=== PATIENT | male | born 1930 | race African-American/Black ===

== ENCOUNTER 2020-05-28 00:02 | Inpatient (IN) | payer MEDICARE, BC ==
--- NOTE | 2020-05-28 01:12 | ER Document Report ---
ED Fall - General Chief Complaint: Fall Stated Complaint: FALL Time Seen by Provider: 05/28/20 00:39 Primary Care Provider: ROB HOLLOWAY DPM [Primary Care Provider] - Follow up as needed TRAVEL OUTSIDE OF THE [place] IN LAST 30 DAYS: No - HPI Notes: Patient is an 89-year-old male who presents after a fall. Patient states that he was getting up from his recliner to get to his wheelchair and slowly slid down to the ground. He states that his legs give out sometimes and this is not new. He did not hit his head or pass out. Patient denies any injuries. No hip pain, no back pain, no neck pain, no chest pain. Patient is not on any blood thinners. He denies any recent illnesses. No fevers. No cough or cold symptoms. He is chronically on 2 L of oxygen for CHF. Patient lives with his family. He states he has had some dysuria. - Related data Allergies/Adverse Reactions: No Known Allergies Allergy (Verified 11/12/14 16:07) Past Medical History - General Information source: Patient - Social History Smoking Status: Former Smoker Frequency of alcohol use: None Drug Abuse: None Family History: Reviewed & Not Pertinent - Past Medical History Cardiac Medical History: Reports: Hx Hypertension, Hx Peripheral Vascular Disease Denies: Hx Coronary Artery Disease, Hx Heart Attack Pulmonary Medical History: Reports: Hx COPD Denies: Hx Asthma, Hx Bronchitis, Hx Pneumonia Neurological Medical History: Denies: Hx Cerebrovascular Accident, Hx Seizures Endocrine Medical History: Reports: Hx Diabetes Mellitus Type 2 Musculoskeletal Medical History: Reports Hx Arthritis - Immunizations Immunizations up to date: Yes Hx Diphtheria, Pertussis, Tetanus Vaccination: Yes Hx Pneumococcal Vaccination: 07/12/13 Review of Systems - Review of Systems Notes: CONSTITUTIONAL: No fever, fatigue or weight loss. SKIN: No rash. HENT: No congestion, ear pain, or sore throat. CARDIOVASCULAR: No chest pain or edema. RESPIRATORY: No cough, congestion, or wheezing. Positive for exertional dyspnea. GASTROINTESTINAL: No abdominal pain, nausea, vomiting, or diarrhea. GENITOURINARY: Occasional dysuria. MUSCULOSKELETAL: No joint pain or swelling. LYMPHATIC: No swollen glands. NEUROLOGIC: No seizures. No headache, focal weakness or sensory changes. HEMATOLOGIC: No unusual bruising or bleeding. PSYCHIATRIC: No depression or anxiety. Physical Exam - Vital signs Vitals: Temp Resp BP Pulse Ox 98.7 F 20 138/64 H 99 05/28/20 00:08 05/28/20 00:08 05/28/20 00:08 05/28/20 00:08 - General General appearance: Appears well Notes: VITAL SIGNS: Within normal limits. GENERAL: No acute distress, non-toxic appearance. HEAD: Normal with no signs of head trauma. EYES: EOMI, conjunctiva normal, no discharge. EARS: Hearing grossly intact. NOSE: Normal. NECK: Normal range of motion, no tenderness, supple, no lymphadenopathy, No adenopathy, no JVD. No posterior cervical tenderness. CHEST: Clear breath sounds bilaterally. No wheezes, rales, or rhonchi. CARDIAC: Regular rate and rhythm. S1 and S2, without murmurs, gallops, or rubs. VASCULAR: Mild lower extremity edema. ABDOMEN: Normal and soft with no tenderness, no masses or pulsatile masses. GENITOURINARY: Normal, No tenderness MUSCULOSKELETAL: Good range of motion of all major joints. Extremities without clubbing, cyanosis or edema. Moves all extremities. Nontender to palpation of major joints. No head trauma. No neck pain. NEUROLOGICAL: Alert and oriented x 3. No focal sensory or strength deficits. Speech normal. Follows commands appropriately. PSYCHIATRIC: Normal Affect, judgement and mood. SKIN: Mild pressure sore on buttocks with mild erythema. Course - Re-evaluation Re-evalutation: 05/28/20 02:04 Patient's granddaughter came and provided more information. She states that he has been progressively getting weaker the past several months. He is usually able to help them move him and participate but he is becoming weaker. He was at [facility] for rehab in July. They recommended that he remain there is a permanent resident but they were unable to afford it. They do have home health care that comes for 2 hours every day to help him bathe. The granddaughter is concerned that they are unable to take care of him at home due to the weakness and it is much worse than normal. He states that he had a lot o f trouble walking from the bedroom to the bathroom which is just several steps away from his room. Patient has an elevated BNP. He also has signs of congestion on his x-ray. Patient has a mild elevated white blood cell count. I will obtain a urinalysis. He was given IV Lasix. I discussed with the hospitalist for admission for exertional dyspnea and CHF exacerbation and he is in agreement. 05/28/20 02:05 05/28/20 06:12 - Vital Signs Vital signs: Temp Pulse Resp BP Pulse Ox 98.2 F 23 H 128/62 H 99 05/28/20 04:15 05/28/20 05:01 05/28/20 05:01 05/28/20 05:01 - Laboratory Result Diagrams: 05/28/20 01:28 05/28/20 01:28 Laboratory results interpreted by me: 05/28/20 05/28/20 05/28/20 01:28 01:28 01:28 WBC 13.4 H RBC 3.98 L Hgb 10.9 L Hct 33.8 L RDW 14.5 H Plt Count 111 L Seg Neuts % (Manual) 89 H Band Neutrophils % 2 L Lymphocytes % (Manual) 4 L Abs Neuts (Manual) 12.2 H Chloride 96 L Carbon Dioxide 36 H BUN 22 H NT-Pro-B Natriuret Pep 1070 H Urine Protein Urine Blood Ur Leukocyte Esterase 05/28/20 04:47 WBC RBC Hgb Hct RDW Plt Count Seg Neuts % (Manual) Band Neutrophils % Lymphocytes % (Manual) Abs Neuts (Manual) Chloride Carbon Dioxide BUN NT-Pro-B Natriuret Pep Urine Protein 30 H Urine Blood LARGE H Ur Leukocyte Esterase MODERATE H - Diagnostic Test Radiology reviewed: Image reviewed, Reports reviewed - EKG Interpretation by Me EKG shows normal: Sinus rhythm Rate: Normal Heart block present: 1st Degree Additional EKG results interpreted by me: 05/28/20 04:05 Sinus rhythm at a rate of 69. First-degree AV block. QTc 425. Artifact present. No obvious ST changes. Previous EKG appears similar. Discharge - Discharge Clinical Impression: Exertional dyspnea, Elevated brain natriuretic peptide (BNP) level CHF exacerbation Qualifiers: Heart failure type: unspecified Qualified Code(s): I50.9 - Heart failure, unspecified Urinary tract infection Qualifiers: Urinary tract infection type: site unspecified Hematuria presence: without hematuria Qualified Code(s): N39.0 - Urinary tract infection, site not specified Condition: Stable Disposition: ADMITTED INPATIENT [facility] Admitted: Telemetry Referrals: ROB HOLLOWAY DPM [Primary Care Provider] - Follow up as needed
[2020-05-28 01:50] LABS: HEMATOCRIT 33.8 % (37.9-51.0); HEMOGLOBIN 10.9 g/dL (13.5-17.0); MEAN CORPUSCULAR HEMOGLOBIN 27.4 pg (27.0-33.4); MEAN CORPUSCULAR HGB CONC 32.2 g/dL (32.0-36.0); MEAN CORPUSCULAR VOLUME 85 fl (80-97); PLATELET COUNT 111 10^3/uL (150-450); RED BLOOD COUNT 3.98 10^6/uL (4.35-5.55); RED CELL DISTRIBUTION WIDTH 14.5 % (11.5-14.0); WHITE BLOOD COUNT 13.4 10^3/uL (4.0-10.5)
[2020-05-28 02:18] LABS: ALBUMIN 3.5 g/dL (3.5-5.0); ALKALINE PHOSPHATASE 54 U/L (38-126); ANION GAP 7 (5-19); ASPARTATE AMINO TRANSFERASE 25 U/L (17-59); BILIRUBIN,DIRECT 0.2 mg/dL (0.0-0.4); BILIRUBIN,TOTAL 0.8 mg/dL (0.2-1.3); BLOOD UREA NITROGEN 22 mg/dL (7-20); CALCIUM 8.9 mg/dL (8.4-10.2); CARBON DIOXIDE 36 mmol/L (22-30); CHLORIDE 96 mmol/L (98-107); GLUCOSE 110 mg/dL (75-110); TOTAL PROTEIN 6.4 g/dL (6.3-8.2)
[2020-05-28 02:21] LABS: ABSOLUTE LYMPHOCYTES# (MANUAL) 0.5 10^3/uL (0.5-4.7); ABSOLUTE MONOCYTES # (MANUAL) 0.7 10^3/uL (0.1-1.4); BAND NEUTROPHILS % (MANUAL) 2 % (3-5); BASOPHILS % (MANUAL) 0 % (0-2); EOSINOPHILS % (MANUAL) 0 % (0-6); LYMPHOCYTES % (MANUAL) 4 % (13-45); MONOCYTES % (MANUAL) 5 % (3-13); SEGMENTED NEUTROPHILS % (MAN) 89 % (42-78); TOTAL CELLS COUNTED 100
[2020-05-28 02:22] LABS: ANISOCYTOSIS SLIGHT; OVALOCYTES SLIGHT; POIKILOCYTOSIS SLIGHT; POLYCHROMASIA SLIGHT; TOXIC GRANULATION SLIGHT; TOXIC VACUOLATION PRESENT
[2020-05-28 02:23] LABS: HYPOCHROMASIA SLIGHT; PLATELET COMMENT DECREASED
--- NOTE | 2020-05-28 03:05 | RADIOLOGY REPORT (SQ) ---
EXAM DESCRIPTION: Site: CHEST SINGLE VIEW RP: XR CHEST 1 VIEW CLINICAL HISTORY: 89 years Male; fall; COMPARISON: 07/18/2015 FINDINGS: Lungs: No definite acute infiltrate. No pneumothorax or pleural effusion. Mediastinum: Mediastinum is within normal limits for this positioning. Bones: Bony structures are unremarkable. IMPRESSION: 1. No acute findings.
[2020-05-28] MEDS ORDERED: FUROSEMIDE INJ/PF 40 MG/4 ML SDV IV ONE (03:56)
[2020-05-28 05:07] LABS: APPEARANCE,URINE SLIGHTLY-CLOUDY; BILIRUBIN,URINE NEGATIVE (NEGATIVE); COLOR,URINE YELLOW; GLUCOSE, URINE NEGATIVE (NEGATIVE); KETONES,URINE NEGATIVE (NEGATIVE); LEUKOCYTE ESTERASE,URINE MODERATE (NEGATIVE); NITRITE,URINE NEGATIVE (NEGATIVE); PROTEIN,URINE 30 mg/dL (NEGATIVE); URINE SPECIFIC GRAVITY 1.014; UROBILINOGEN,URINE NEGATIVE mg/dL (<2.0)
--- NOTE | 2020-05-28 05:11 | PDOC H&P ---
History of Present Illness Admission Date/PCP: ROB HOLLOWAY DPM Patient complains of: Worsening shortness of breath, fall History of Present Illness: TAO VEGA is a 89 year old male [id number] heart failure with preserved ejection fraction, type 2 diabetes and chronic venous ulcer he has no ports to the ER by his granddaughter after he had a fall this morning. His daughters reports that over the past few weeks patient has been getting progre ssively weaker and weaker unable to do activities she was previously able to do and has been having a fall while trying to transfer from her recliner to a roller walker or a wheelchair. He denies any dizziness/lightheadedness prior to, during or after his falls. The fall was witnessed and he did not lose consciousness, or hit his he had during the incident. His grand daughter also reports that he has been feeling progressively short of breath in the past 1 week and has been winded with minimal activity. He has no cough, fever, chills, chest pain, palpitation, nausea, vomiting, diarrhea or any change in his urinary habits. He has not had any recent sick contact history. Past Medical History Cardiac Medical History: Reports: Hypertension, Peripheral Vascular Disease Denies: Coronary Artery Disease, Myocardial Infarction Pulmonary Medical History: Reports: Chronic Obstructive Pulmonary Disease (COPD) Denies: Asthma, Bronchitis, Pneumonia Neurological Medical History: Denies: Seizures Endocrine Medical History: Reports: Diabetes Mellitus Type 2 Musculoskeltal Medical History: Reports: Arthritis Hematology: Denies: Anemia Social History Information Source: Relative Lives with: Family Smoking Status: Former Smoker Frequency of Alcohol Use: None Hx Recreational Drug Use: No Drugs: None Hx Prescription Drug Abuse: No - Advance Directive Resuscitation Status: Full Code Family History Parental Family History Reviewed: Yes Children Family History Reviewed: Yes Sibling(s) Family History Reviewed.: Yes Medication/Allergy Home Medications: Allopurinol [Zyloprim 300 mg Tablet] 300 mg PO DAILY 11/05/14 Ascorbic Acid [Vitamin C 500 mg Tablet] 500 mg PO DAILY 11/05/14 Aspirin [Aspirin 81 mg Chewable Tablet] 81 mg PO DAILY 11/05/14 Cholecalciferol (Vitamin D3) [Vitamin D3 1000 Unit Tablet] 1,000 unit PO MOFR 11/05/14 Cyanocobalamin (Vitamin B-12) [Vitamin B-12 1000 mcg Tablet] 1 tab PO DAILY 11/05/14 Docusate Sodium [Colace 100 mg Capsule] 100 mg PO DAILY 11/05/14 Ferrous Sulfate [Iron] 325 mg PO DAILY 11/05/14 Fexofenadine HCl [Rosi] 180 mg PO DAILY 11/05/14 Furosemide [Lasix 40 mg Tablet] 60 mg PO BID 11/05/14 Latanoprost [Xalatan 0.005% Oph Soln 2.5 ml] 1 drop OU QHS 11/05/14 Omeprazole 20 mg PO DAILY 11/05/14 Oxybutynin Chloride 5 mg PO TID 11/05/14 Terazosin HCl 5 mg PO QHS 11/05/14 Albuterol Sulfate [Albuterol Sulfate 2.5mg/3 mL] 1 dose IH Q4 PRN 03/14/15 Bisacodyl [Dulcolax] 5 mg PO DAILY 03/14/15 Polyethylene Glycol 3350 [Miralax Powder 17 gm/Packet] 1 packet PO DAILY 05/31/15 Metoprolol Succinate 50 mg PO DAILY #30 tab.er.24h 06/06/15 Losartan Potassium [Cozaar 100 mg Tablet] 100 mg PO DAILY 06/07/15 Potassium Chloride [Klor-Con] 20 meq PO DAILY 06/13/15 Terbinafine HCl [Lamisil] 250 mg PO DAILY 06/13/15 Brimonidine Tartrate [Alphagan 0.2% Oph Soln 5 ml] 1 drop OU DAILY 07/18/15 Carvedilol [Coreg 12.5 mg Tablet] 25 mg PO Q12 #0 tablet 07/24/15 Allergies/Adverse Reactions: No Known Allergies Allergy (Verified 11/12/14 16:07) Review of Systems Constitutional: PRESENT: as per HPI, fatigue, weakness Eyes: ABSENT: visual disturbances Ears: ABSENT: hearing changes Nose, Mouth, and Throat: ABSENT: as per HPI, headache(s), mouth pain, sore throat, vertigo, other Cardiovascular: PRESENT: as per HPI Respiratory: PRESENT: as per HPI Gastrointestinal: ABSENT: abdominal pain, constipation, diarrhea, hematemesis, hematochezia, nausea, vomiting Genitourinary: ABSENT: dysuria, hematuria Musculoskeletal: PRESENT: muscle weakness. ABSENT: joint swelling Integumentary: PRESENT: wounds Neurological: ABSENT: abnormal speech, confusion, dizziness, focal weakness, syncope Psychiatric: ABSENT: anxiety, depression, homidical ideation, suicidal ideation Endocrine: ABSENT: cold intolerance, heat intolerance, polydipsia, polyuria Hematologic/Lymphatic: ABSENT: easy bleeding, easy bruising Physical Exam Vital Signs: Temp Pulse Resp BP Pulse Ox 98.2 F 22 H 153/71 H 99 05/28/20 04:15 05/28/20 04:01 05/28/20 04:00 05/28/20 04:01 Additional comments: GENERAL APPEARANCE: in no acute distress, lying comfortably on he states and saturating well on 2 L intranasal oxygen HEENT: Normocephalic and atraumatic. No scleral icterus. Moist oral mucosa NECK: Supple. No lymphadenopathy or tenderness. No carotid bruit. No JVD CHEST: Symmetric. Nontender to palpation. LUNGS: Defiantly heard breath sounds likely due to his body habitus. No wheezing or crackles HEART: Regular rate and rhythm with normal S1 and S2. No murmurs, gallops, or rubs. ABDOMEN: Flat, soft, active bowel sounds, no direct or rebound tenderness. No organomegaly detected. No CVA tenderness EXTREMITIES: No cyanosis, clubbing. Has right lower extremity swelling MUSCULOSKELETAL: No deformity, atrophy or swelling noted PSYCHIATRIC: Recent and remote memory is intact. Appropriate mood and affect. SKIN: Warm, dry, and well perfused. Has multiple healed pressure ulcer lesion on his calf bilaterally. NEUROLOGIC: No focal sensory or motor deficits are noted. Results Laboratory Results: 05/28/20 01:28 05/28/20 01:28 05/28/20 05/28/20 01:28 01:28 WBC 13.4 H RBC 3.98 L Hgb 10.9 L Hct 33.8 L MCV 85 MCH 27.4 MCHC 32.2 RDW 14.5 H Plt Count 111 L Seg Neutrophils % Not Reportable Sodium 139.2 Potassium 4.0 Chloride 96 L Carbon Dioxide 36 H Anion Gap 7 BUN 22 H Creatinine 0.68 Est GFR ( Amer) > 60 Glucose 110 Calcium 8.9 Total Bilirubin 0.8 AST 25 Alkaline Phosphatase 54 Total Protein 6.4 Albumin 3.5 05/28/20 05/28/20 01:28 01:28 Troponin I 0.013 NT-Pro-B Natriuret Pep 1070 H Impressions: Chest X-Ray 05/28/20 00:57 IMPRESSION: 1. No acute findings. Assessment and Plan - Diagnosis (1) Acute on chronic diastolic heart failure Is this a current diagnosis for this admission?: Yes Plan: Presents with worsening shortness of breath Has orthopnea BNP elevated at 1070 Patient was given Lasix 40 mg IV at the ED Cardiac enzymes negative, EKG sinus rhythm Continue Lasix 20 mg IV twice daily Strict I&O's, daily weight, fluid restriction (2) Frequent falls Is this a current diagnosis for this admission?: Yes Plan: Likely due to deconditioning and heart failure Continue treatment heart failure as stated above Physical therapy, Occupational Therapy Fall precaution May need short-term rehab (3) Right leg swelling Is this a current diagnosis for this admission?: Yes Plan: Patient has a history of chronic lower extremity venous stasis Currently reports right lower extremity is more swollen than usual Obtain Doppler ultrasound of the right lower extremity (4) Sleep apnea syndrome Qualifiers: Sleep apnea type: unspecified type Qualified Code(s): G47.30 - Sleep apnea, unspecified Is this a current diagnosis for this admission?: Yes Plan: Continue CPAP while inpatient (5) Type 2 diabetes mellitus Qualifiers: Diabetes mellitus complication status: with kidney complications Diabetes mellitus complication detail: with chronic kidney disease 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) Qualified Code(s): E11.22 - Type 2 diabetes mellitus with diabetic chronic kidney disease Is this a current diagnosis for this admission?: Yes Plan: Accu-Chek, hypoglycemia protocol and sliding scale (6) Morbid obesity Is this a current diagnosis for this admission?: Yes - Time Time Spent with patient: 35 or more minutes Total Critical Time (Minutes): 45 Medications reviewed and adjusted accordingly: Yes Anticipated Discharge Disposition: Retirement Facility Anticipated Discharge Timeframe: within 48 hours - Inpatient Certification Based on my medical assessment, after consideration of the patient's comorbidities, presenting symptoms, or acuity I expect that the services needed warrant INPATIENT care.: Yes I certify that my determination is in accordance with my understanding of Medicare's requirements for reasonable and necessary INPATIENT services [42 CFR 412.3e].: Yes Medical Necessity: Significant Comorbidiites Make Outpatient Treatment Too Risky, Need Close Monitoring Due to Risk of Patient Decompensation, Need For Continuous Telemetry Monitoring, Risk of Complication if Not Cared For in Hospital Post Hospital Care: D/C or Transfer Summary
[2020-05-28] MEDS ORDERED: CEFTRIAXONE 2 GM/D5W RTU 2 GM/50 ML RTUPB IV ONE (06:14)
[2020-05-28] MEDS: ACETAMINOPHEN 325 MG TABLET PO PRN (06:28)
[2020-05-28] MEDS: FAMOTIDINE 20 MG TABLET PO SCH ×2 (10:44→22:25)
[2020-05-28] MEDS: FUROSEMIDE INJ/PF 20 MG/2 ML SDV IV SCH ×2 (10:44→22:25)
[2020-05-28] MEDS: ENOXAPARIN SODIUM INJ 40 MG/0.4 ML DISP.SYRIN SUBCUT SCH (10:44)
--- NOTE | 2020-05-28 15:22 | EKG REPORT ---
SEVERITY:- ABNORMAL ECG - SINUS RHYTHM FIRST DEGREE AV BLOCK BORDERLINE T ABNORMALITIES, ANT-LAT LEADS : Confirmed by: Vijaya Gresham MD 28-May-2020 15:21:51
--- NOTE | 2020-05-28 20:47 | ADVANCED CARE ---
Attendance: Discussion was held at the bedside with the patient as well as his granddaughter who was present in person. Resuscitation Status: Full Code Discussion: Patient's current code status is full code. This discussion was focused on making sure that everyone understood the concept of DNR versus comfort measures or less aggressive care. Discussed hospice in detail. Patient and his daughter were informed that if he chose to pursue home hospice this would make him a DNR. We reviewed the fact that aggressive therapy will be initiated and the DNR only comes into effect should the patient have a catastrophic event. They are understanding of this and requesting for further information on hospice at this time. Discussed this with discharge planning who agreed to provide patient and patient's family with information on home hospice resources. Care Planning Goals: The goal would be to have the patient establish an understanding with himself and his family as to what his wishes are in regard to ongoing decompensation without a catastrophic event. Document(s) Completed: none Time Spent: 40 minutes
[2020-05-29 06:53] LABS: HEMATOCRIT 34.2 % (37.9-51.0); HEMOGLOBIN 10.8 g/dL (13.5-17.0); MEAN CORPUSCULAR HEMOGLOBIN 27.2 pg (27.0-33.4); MEAN CORPUSCULAR HGB CONC 31.6 g/dL (32.0-36.0); MEAN CORPUSCULAR VOLUME 86 fl (80-97); PLATELET COUNT 106 10^3/uL (150-450); RED BLOOD COUNT 3.97 10^6/uL (4.35-5.55); RED CELL DISTRIBUTION WIDTH 14.6 % (11.5-14.0); WHITE BLOOD COUNT 8.7 10^3/uL (4.0-10.5)
[2020-05-29 07:14] LABS: ANION GAP 8 (5-19); BLOOD UREA NITROGEN 18 mg/dL (7-20); CALCIUM 8.9 mg/dL (8.4-10.2); CARBON DIOXIDE 36 mmol/L (22-30); CHLORIDE 96 mmol/L (98-107); GLUCOSE 94 mg/dL (75-110); POTASSIUM 3.7 mmol/L (3.6-5.0)
--- NOTE | 2020-05-29 09:48 | RADIOLOGY REPORT (SQ) ---
EXAM DESCRIPTION: VENOUS UNILATERAL LOWER IMAGES COMPLETED DATE/TIME: 05/28/2020 1:07 pm REASON FOR STUDY: Right lower extremity swelling COMPARISON: None. TECHNIQUE: Dynamic and static siddiqi scale and color images acquired of the left leg venous system. Se lected spectral images acquired with additional compression and augmentation maneuvers. The contralat eral common femoral vein and saphenofemoral junction were also imaged. Images stored on PACS. LIMITATIONS: None. FINDINGS: COMMON FEMORAL: Normal phasicity, compression and augmentation. No visualized echogenic ma terial on siddiqi scale. No defects on color images. FEMORAL: Normal compression and augmentation. No visualized echogenic material on siddiqi scale. No defe cts on color images. The distal superficial femoral vein could not be seen because of body habitus. POPLITEAL: Normal compression, augmentation. No visualized echogenic material on siddiqi scale. No defec ts on color images. CALF VESSELS: Normal compression, augmentation. No visualized echogenic material on siddiqi scale. No de fects on color images. GSV and SSV: Normal compression, augmentation. No visualized echogenic material on siddiqi scale. No def ects on color images. ANY DEEP VENOUS INSUFFICIENCY: Not evaluated. ANY EVIDENCE OF POPLITEAL CYST: No. OTHER: No other significant finding. CONTRALATERAL COMMON FEMORAL VEIN AND SAPHENOFEMORAL JUNCTION: Normal phasicity, compression and augmentation. No visualized echogenic material on siddiqi scale. No de fects on color images. IMPRESSION: NO EVIDENCE DVT OR SVT IN THE LEFT LEG. TECHNICAL DOCUMENTATION: JOB ID: [id number] 2010 [employer]- All Rights Reserved Reading location - IP/workstation name: [email or web address]
[2020-05-29] MEDS ORDERED: CEFTRIAXONE 2 GM/D5W RTU 2 GM/50 ML RTUPB IV SCH (10:00)
[2020-05-29] MEDS: FUROSEMIDE INJ/PF 20 MG/2 ML SDV IV SCH ×2 (10:01→22:10)
[2020-05-29] MEDS: FAMOTIDINE 20 MG TABLET PO SCH ×2 (10:02→22:10)
--- NOTE | 2020-05-29 10:02 | RADIOLOGY REPORT (SQ) ---
EXAM DESCRIPTION: TIBIA FIBULA RIGHT IMAGES COMPLETED DATE/TIME: 05/29/2020 9:29 am REASON FOR STUDY: s/p flal 05/28 concern right hip/ankle fx Z79.899 OTHER [facility] (CURRENT) DRUG THERAPY COMPARISON: Venous Doppler 05/28/2020 Right hip films 05/29/2020 NUMBER OF VIEWS: Two views. TECHNIQUE: Two radiographic images acquired of the right tibia and fibula to include the knee and an kle in at least one projection. LIMITATIONS: None. FINDINGS: MINERALIZATION: Normal. BONES: No acute fracture or dislocation. No worrisome bone lesions. 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 Advanced patellofemoral joint space narrowing SOFT TISSUES: Diffuse arterial vascular calcifications. OTHER: No other significant finding. IMPRESSION: No acute fracture TECHNICAL DOCUMENTATION: JOB ID: [id number] [employer]- All Rights Reserved Reading location - IP/workstation name: [email or web address]
[2020-05-29] MEDS: ENOXAPARIN SODIUM INJ 40 MG/0.4 ML DISP.SYRIN SUBCUT SCH (10:03)
--- NOTE | 2020-05-29 10:03 | RADIOLOGY REPORT (SQ) ---
EXAM DESCRIPTION: HIP RIGHT AP/LATERAL IMAGES COMPLETED DATE/TIME: 05/29/2020 9:29 am REASON FOR STUDY: s/p flal 05/28 concern right hip/ankle fx Z79.899 OTHER [facility] (CURRENT) DRUG THERAPY COMPARISON: None. NUMBER OF VIEWS: Two views. TECHNIQUE: AP pelvis and additional frog legview of the right hip. LIMITATIONS: None. FINDINGS: MINERALIZATION: Normal. RIGHT HIP: No fracture or dislocation. No worrisome bone lesions. LEFT HIP: No fracture or dislocation. No worrisome bone lesions. Limited views. PUBIS AND ISCHIUM: No fracture. PELVIS: No fracture. SACRUM: No fracture or dislocation. Sclerotic SI joints. LOWER LUMBAR SPINE: Advanced degenerative disc changes with disc space narrowing and facet arthropath y SOFT TISSUES: Radiotherapy treatment seeds in the prostate OTHER: No other significant finding. IMPRESSION: NEGATIVE STUDY OF THE RIGHT HIP. NO RADIOGRAPHIC EVIDENCE OF ACUTE INJURY. TECHNICAL DOCUMENTATION: JOB ID: [id number] 2010 [employer]- All Rights Reserved Reading location - IP/workstation name: [email or web address]
[2020-05-29] MEDS ORDERED: NITROFURANTOIN MONOHYD/M-CRYST 100 MG CAPSULE PO SCH (11:30)
--- NOTE | 2020-05-29 11:33 | RADIOLOGY REPORT (SQ) ---
EXAM DESCRIPTION: CT RT LOWER EXTREMITY WITHOUT IMAGES COMPLETED DATE/TIME: 05/29/2020 10:48 am REASON FOR STUDY: WARM SPOT OVER TIB/FIB COMPARISON: None. TECHNIQUE: Axial acquisition was performed of the right lower leg. Coronal and sagittal reformats a re provided. LIMITATIONS: None. FINDINGS: The patient is status post right total knee arthroplasty without evidence of hardware comp lication. This confers beam hardening artifact obscuring evaluation of the surrounding bony and soft tissue structures. Degenerative changes are seen of the tibiotalar joint and midfoot as visualized. Osseous mineralization and alignment are otherwise normal without evidence of fracture, dislocation , or sclerotic/ lytic osseous lesion. There is no periosteal reaction. There is diffuse fatty atrop hy of the lower leg musculature. Atherosclerotic vascular calcifications are present. Skin thickeni ng and subcutaneous fat stranding is seen anteriorly without focal fluid collection. No soft tissue mass. No extension into the muscular compartments. IMPRESSION: Findings consistent with cellulitis without demonstrated extension into the muscular com partments or underlying osseous abnormality to suggest osteomyelitis. TECHNICAL DOCUMENTATION: JOB ID: [id number] 2010 [employer]- All Rights Reserved Reading location - IP/workstation name: [email or web address]
[2020-05-29] MEDS: ACETAMINOPHEN 325 MG TABLET PO PRN (15:30)
[2020-05-29] MEDS: CEPHALEXIN 500 MG CAPSULE PO SCH ×2 (15:34→22:10)
--- NOTE | 2020-05-29 15:59 | PDOC PROGRESS REPORT ---
Subjective Date:: 05/29/20 Subjective:: Patient see on morning rounds, he is resting upright in bed comfortably. Patient's granddaughter is at his bed side during exam. Reports significant improvement compared to yesterday. Reports improvement in RLE pain. Discussed the results of right lower extremity imaging including Doppler CT and x-rays with the patient and his granddaughter in detail. Discussed plan to initiate antibiotic therapy for cellulitis right lower extremity. Patient's granddaughter tells me that she has received home hospice information from discharge planning. Patient's granddaughter requests that I contact patient's primary care provider . Patient denies shortness of breath, chest pain, palpitations, abd, NVD. Contacted PCP via telephone in the afternoon. Shared a pleasant conversation regarding pt's current care and history. Per PCP pt's last hospitalization for heart failure was Feb 2019, at which he requires ~1 week IV dieresis. Discussed option of home health vs home hospice vs SNF placement. Plans to contact granddaughter following conversation. Reason For Visit: ACUTE ON CHRONIC DIASTOLIC HEART FAILURE,FREQUENT FALLS, RLE CELLULITIS Physical Exam Vital Signs: Temp Pulse Resp BP Pulse Ox 97.9 F 69 20 144/52 H 100 05/29/20 11:45 05/29/20 11:45 05/29/20 11:45 05/29/20 11:45 05/29/20 11:45 Intake & Output 05/28/20 05/29/20 05/30/20 06:59 06:59 06:59 Intake Total 240 890 486 Output Total 1000 2400 Balance -760 -1510 486 Weight 159.5 kg 155.3 kg General appearance: PRESENT: no acute distress, cooperative, morbidly obese Head exam: PRESENT: atraumatic, normocephalic Eye exam: PRESENT: EOMI, other - Swelling in periorbital region greatly reduced from evaluation yesterday.. ABSENT: scleral icterus Mouth exam: PRESENT: moist, tongue midline Neck exam: PRESENT: full ROM. ABSENT: carotid bruit, JVD, lymphadenopathy, tenderness, thyromegaly Respiratory exam: PRESENT: decreased breath sounds - liekly due to body habitus.. ABSENT: crackles, wheezes Cardiovascular exam: PRESENT: RRR, +S1, +S2. ABSENT: clicks, diastolic murmur, gallop, systolic murmur Pulses: PRESENT: normal radial pulses GI/Abdominal exam: PRESENT: distended, normal bowel sounds, soft. ABSENT: organolmegaly, tenderness Gentrourinary exam: PRESENT: indwelling catheter Extremities exam: PRESENT: pedal edema - bilateral lower extremities, other - Patinet seated with right lower extremity externally rotated, this does not appear dislocated or deformed. ROM bilateral lower extremity limited secondary to body habitus. Musculoskeletal exam: ABSENT: deformity, dislocation Neurological exam: PRESENT: alert, awake, oriented to person, oriented to place, oriented to time, oriented to situation. ABSENT: altered, CN II-XII grossly intact, motor sensory deficit Psychiatric exam: PRESENT: appropriate affect, normal mood Skin exam: PRESENT: erythema - Right lower extrmeity with erythema extending from ankle to approximately 4 inches below the right knee. This is associated with warmth this is greatly decreased when compared to yesterday., warm, other - Chronic skin changes bilateral lower extremities with noted hyperpigmentation. There is well healed venous stasis ulcer on the posterior left johnson with a dried white scab overlying. Skin is taut entraining there is noted of wrinkling of the skin, this is improved from yesterday. Results Laboratory Results: 05/29/20 06:03 05/29/20 06:03 05/29/20 05/29/20 06:03 06:03 WBC 8.7 RBC 3.97 L Hgb 10.8 L Hct 34.2 L MCV 86 MCH 27.2 MCHC 31.6 L RDW 14.6 H Plt Count 106 L Sodium 139.5 Potassium 3.7 Chloride 96 L Carbon Dioxide 36 H Anion Gap 8 BUN 18 Creatinine 0.62 Est GFR ( Amer) > 60 Glucose 94 Calcium 8.9 05/28/20 05/28/20 05/28/20 01:28 01:28 10:49 Troponin I 0.013 < 0.012 NT-Pro-B Natriuret Pep 1070 H Impressions: Venous Doppler Study 05/28/20 00:00 IMPRESSION: NO EVIDENCE DVT OR SVT IN THE LEFT LEG. Chest X-Ray 05/28/20 00:57 IMPRESSION: 1. No acute findings. Hip/Pelvis X-Ray 05/29/20 00:00 IMPRESSION: NEGATIVE STUDY OF THE RIGHT HIP. NO RADIOGRAPHIC EVIDENCE OF ACUTE INJURY. Lower Extremity CT 05/29/20 00:00 IMPRESSION: Findings consistent with cellulitis without demonstrated extension into the muscular compartments or underlying osseous abnormality to suggest osteomyelitis. Tibia/Fibula X-Ray 05/29/20 00:00 IMPRESSION: No acute fracture Assessment and Plan - Diagnosis (1) Cellulitis of right lower extremity Is this a current diagnosis for this admission?: Yes Plan: S/p fall prior to admission, landing on right side. RLE imaging without acute findings fx, findings consistent with cellulitis. Initiate Cephalexin 500mg PO q8 (05/29). Wound care consulted. (2) Right leg swelling Is this a current diagnosis for this admission?: Yes Plan: As per #1. History chronic venous stasis Doppler US without finding acute clot. CT and Xray without finding acute fx. Tx as above. (3) Acute on chronic diastolic heart failure Is this a current diagnosis for this admission?: Yes Plan: Presents with worsening shortness of breath and orthopnea BNP elevated at 1070. Last hospitalized from heart failure exacerbation Feb 2019. Cardiac enzymes negative, EKG sinus rhythm Continue Lasix 20 mg IV twice daily Strict I&O's, daily weight, fluid restriction (4) Frequent falls Is this a current diagnosis for this admission?: Yes Plan: Likely due to deconditioning and heart failure. Physical therapy consulted for evaluation. Discussed treatment options with pt family including Home hospice vs SNF. Decision pending PT evaluation and discussion with family. (5) Sleep apnea syndrome Qualifiers: Sleep apnea type: unspecified type Qualified Code(s): G47.30 - Sleep apnea, unspecified Is this a current diagnosis for this admission?: Yes Plan: Continue CPAP while inpatient. (6) Type 2 diabetes mellitus Qualifiers: Diabetes mellitus complication status: with kidney complications Diabetes mellitus complication detail: with chronic kidney disease 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) Is this a current diagnosis for this admission?: Yes Plan: Glucose readings consistently between 90-110. Ordered HemA1C, pending. Accu-Chek, hypoglycemia protocol and sliding scale (7) Morbid obesity Is this a current diagnosis for this admission?: Yes Plan: BMI of 47.8kg/m2. Discussed dietary and lifestyle recommendations and changes with the patient in detail. - Time Time Spent with patient: 35 or more minutes Medications reviewed and adjusted accordingly: Yes Anticipated Discharge Disposition: [facility] Anticipated Discharge Timeframe: within 48 hours
[2020-05-29] MEDS ORDERED: ALBUTEROL SULFATE 0.083% NEB 2.5 MG/3 ML AMPUL NEB PRN (17:15)
[2020-05-29] MEDS: AMLODIPINE BESYLATE 10 MG TABLET PO SCH (18:00)
[2020-05-29] MEDS ORDERED: TERAZOSIN HCL 5 MG PO SCH (22:00)
[2020-05-29] MEDS: FLUTICASONE NASAL SPRAY 50 MCG/SPRY 120 SPRAY/16 GM NASL SCH (22:10)
[2020-05-29] MEDS: CARVEDILOL 12.5 MG TABLET PO SCH (22:11)
[2020-05-29] MEDS: LATANOPROST 0.005% OPH SOLN 2.5 ML OU SCH (22:12)
[2020-05-30 06:40] LABS: HEMATOCRIT 34.1 % (37.9-51.0); HEMOGLOBIN 10.8 g/dL (13.5-17.0); MEAN CORPUSCULAR HGB CONC 31.7 g/dL (32.0-36.0); MEAN CORPUSCULAR VOLUME 85 fl (80-97); PLATELET COUNT 115 10^3/uL (150-450); RED CELL DISTRIBUTION WIDTH 14.3 % (11.5-14.0); WHITE BLOOD COUNT 6.4 10^3/uL (4.0-10.5)
[2020-05-30] MEDS: CEPHALEXIN 500 MG CAPSULE PO SCH ×3 (06:45→21:51)
[2020-05-30 07:06] LABS: BLOOD UREA NITROGEN 18 mg/dL (7-20); CALCIUM 8.8 mg/dL (8.4-10.2); CHLORIDE 94 mmol/L (98-107); GLUCOSE 98 mg/dL (75-110)
[2020-05-30 07:18] LABS: ANION GAP 7 (5-19)
[2020-05-30 07:21] LABS: CARBON DIOXIDE 36 mmol/L (22-30)
[2020-05-30] MEDS ORDERED: LOSARTAN POTASSIUM 100 MG PO SCH (10:00)
[2020-05-30] MEDS: ENOXAPARIN SODIUM INJ 40 MG/0.4 ML DISP.SYRIN SUBCUT SCH (11:22)
[2020-05-30] MEDS: CARVEDILOL 12.5 MG TABLET PO SCH ×2 (11:24→21:50)
[2020-05-30] MEDS: FAMOTIDINE 20 MG TABLET PO SCH ×2 (11:24→21:50)
[2020-05-30] MEDS: LOSARTAN POTASSIUM 50 MG TABLET PO SCH (11:25)
[2020-05-30] MEDS: FLUTICASONE NASAL SPRAY 50 MCG/SPRY 120 SPRAY/16 GM NASL SCH ×2 (11:25→21:51)
[2020-05-30] MEDS: FUROSEMIDE INJ/PF 20 MG/2 ML SDV IV SCH ×2 (11:26→21:51)
[2020-05-30] MEDS: AMLODIPINE BESYLATE 10 MG TABLET PO SCH (11:26)
--- NOTE | 2020-05-30 15:46 | ADVANCED CARE ---
- Diagnosis (1) Cellulitis of right lower extremity Diagnosis Current: Yes (2) Right leg swelling Diagnosis Current: Yes (3) Acute on chronic diastolic heart failure Diagnosis Current: Yes (4) Frequent falls Diagnosis Current: Yes (5) Sleep apnea syndrome Diagnosis Current: Yes (6) Type 2 diabetes mellitus Diagnosis Current: Yes (7) Morbid obesity Diagnosis Current: Yes (8) Pseudomonas urinary tract infection Diagnosis Current: Yes Attendance: Discussion was held at the bedside with the patient as well as his granddaughter who functions as his POA. Resuscitation Status: Do Not Resuscitate Discussion: The patient did declare his status as DNR. This discussion was focused on making sure that everyone understood the concept of DNR versus comfort measures or less aggressive care. We reviewed the fact that aggressive therapy will be initiated and the DNR only comes into effect should the patient have a catastrophic event. Patient moving forward with home hospice care. A portion of the discussion was focused on ensuring everyone understood the resources home hospice can provide for the patient. Care Planning Goals: The goal of the conversation was to be ensure the patient and his POA (his granddaughter) were understanding of what home hospice entails. Document(s) Completed: DNR form completed today. Time Spent: 30
--- NOTE | 2020-05-30 16:03 | PDOC PROGRESS REPORT ---
Subjective Date:: 05/30/20 Subjective:: Patient is resting in bed. No acute events overnight. He is requesting a new compression stockings, these were provided. He is not to put stocking on RLE as long as cellulitis is present, understands. Right lower extremity skin continues to be tender, though improved. Breathing has improved. Patient feels overall less swollen. Patient's granddaughter and POA present. ACP discussion was held, as documented. Patient moving forward with home hospice care, code status DNR. Patient's granddaughter inquired about offloading mattress, navin lift, compression stockings with zipper, and lomeli catheter while on hospice care. Will contact discharge planning regarding needs. No further questions or concerns at this time. Reason For Visit: HEART FAILURE Physical Exam Vital Signs: Temp Pulse Resp BP Pulse Ox 98.0 F 58 L 18 131/52 H 100 05/30/20 12:20 05/30/20 12:20 05/30/20 12:20 05/30/20 12:20 05/30/20 12:20 Intake & Output 05/29/20 05/30/20 05/31/20 06:59 06:59 06:59 Intake Total 890 726 120 Output Total 2400 1150 Balance -1510 -424 120 Weight 155.3 kg 155 kg Additional comments: Head exam: PRESENT: atraumatic, normocephalic Eye exam: PRESENT: EOMI, other - Swelling in periorbital region greatly reduced from evaluation yesterday.. ABSENT: scleral icterus Mouth exam: PRESENT: moist, tongue midline Neck exam: PRESENT: full ROM. ABSENT: carotid bruit, JVD, lymphadenopathy, tenderness, thyromegaly Respiratory exam: PRESENT: decreased breath sounds - liekly due to body habitus.. ABSENT: crackles, wheezes Cardiovascular exam: PRESENT: RRR, +S1, +S2. ABSENT: clicks, diastolic murmur, gallop, systolic murmur Pulses: PRESENT: normal radial pulses GI/Abdominal exam: PRESENT: distended, normal bowel sounds, soft. ABSENT: organolmegaly, tenderness Gentrourinary exam: PRESENT: indwelling catheter Extremities exam: PRESENT: pedal edema - bilateral lower extremities with the R>L, though improved from previous visit. ROM bilateral lower extremity limited secondary to body habitus. Minimal TTP of right lower extremity in the area of cellulitis. Musculoskeletal exam: ABSENT: deformity, dislocation Neurological exam: PRESENT: alert, awake, oriented to person, oriented to place, oriented to time, oriented to situation. ABSENT: altered, CN II-XII grossly intact, motor sensory deficit Psychiatric exam: PRESENT: appropriate affect, normal mood Skin exam: PRESENT: erythema - Right lower extremity with erythema extending from ankle to approximately 6 inches below the right knee, this has decreased from previous visit. This is associated with warmth this is greatly decreased when compared to yesterday. warm, other - Chronic skin changes bilateral lower extremities with noted hyperpigmentation. There is well healed venous stasis ulcer on the posterior left johnson with a dried white scab overlying. Skin is taut and shiny. There is wrinkling of the skin bilaterally, this is improved from previous visits. Results Laboratory Results: 05/30/20 06:00 05/30/20 06:00 05/30/20 05/30/20 06:00 06:00 WBC 6.4 RBC 4.00 L Hgb 10.8 L Hct 34.1 L MCV 85 MCH 27.0 MCHC 31.7 L RDW 14.3 H Plt Count 115 L Sodium 137.1 Potassium 4.0 Chloride 94 L Carbon Dioxide 36 H Anion Gap 7 BUN 18 Creatinine 0.58 Est GFR ( Amer) > 60 Glucose 98 Calcium 8.8 05/28/20 05/28/20 05/28/20 01:28 01:28 10:49 Troponin I 0.013 < 0.012 NT-Pro-B Natriuret Pep 1070 H Impressions: Venous Doppler Study 05/28/20 00:00 IMPRESSION: NO EVIDENCE DVT OR SVT IN THE LEFT LEG. Chest X-Ray 05/28/20 00:57 IMPRESSION: 1. No acute findings. Hip/Pelvis X-Ray 05/29/20 00:00 IMPRESSION: NEGATIVE STUDY OF THE RIGHT HIP. NO RADIOGRAPHIC EVIDENCE OF ACUTE INJURY. Lower Extremity CT 05/29/20 00:00 IMPRESSION: Findings consistent with cellulitis without demonstrated extension into the muscular compartments or underlying osseous abnormality to suggest osteomyelitis. Tibia/Fibula X-Ray 05/29/20 00:00 IMPRESSION: No acute fracture Assessment and Plan - Diagnosis (1) Pseudomonas urinary tract infection Is this a current diagnosis for this admission?: Yes Plan: UA + protein, large blood, and moderate leukocyte esterase. UC initially positive for gram negative rods, on Keflex which provides coverage did not implement additional therapy. UC positive for pseudomonas today. Implemented therapy with Ciprofloxacin 500mg PO Q8 x7 days - Start date 05/30 - End date 06/06 (2) Cellulitis of right lower extremity Is this a current diagnosis for this admission?: Yes Plan: S/p fall prior to admission, landing on right side. RLE imaging without acute findings fx, findings consistent with cellulitis. Initiate Cephalexin 500mg PO q8 (05/29). Wound care consulted - Recommend bilateral compression - Hold on compression of RLE until cellulitis has cleared (3) Right leg swelling Is this a current diagnosis for this admission?: Yes Plan: As per #1. History chronic venous stasis Doppler US without finding acute clot. CT and Xray without finding acute fx. Tx as above. (4) Acute on chronic diastolic heart failure Is this a current diagnosis for this admission?: Yes Plan: Presents with worsening shortness of breath and orthopnea; this has improved with 20mg IV lasix BID. BNP elevated at 1070. Last hospitalized from heart failure exacerbation Feb 2019. Cardiac enzymes negative, EKG sinus rhythm Continue Lasix 20 mg IV twice daily Strict I&O's, daily weight, fluid restriction Plan to discharge home with increased dose PO lasix. (5) Frequent falls Is this a current diagnosis for this admission?: Yes Plan: Likely due to deconditioning and heart failure. Physical therapy consulted for evaluation. Pt and POA have decided to move forward with home health. Per PT recommendations HH with assist. Continue with PT while in house. Family requesting navin lift and offloading mattress. (6) Sleep apnea syndrome Qualifiers: Sleep apnea type: unspecified type Qualified Code(s): G47.30 - Sleep apnea, unspecified Is this a current diagnosis for this admission?: Yes Plan: Continue CPAP while inpatient. 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 Glucose readings consistently <100. No treatment necessary at this time. (8) Morbid obesity Is this a current diagnosis for this admission?: Yes Plan: BMI of 47.8kg/m2. Discussed dietary and lifestyle recommendations and changes with the patient in detail. - Time Time Spent with patient: 35 or more minutes Medications reviewed and adjusted accordingly: Yes Anticipated Discharge Disposition: Home with Hospice Anticipated Discharge Timeframe: within 48 hours
[2020-05-30] MEDS: CIPROFLOXACIN HCL 500 MG TABLET PO SCH (21:50)
[2020-05-30] MEDS: LATANOPROST 0.005% OPH SOLN 2.5 ML OU SCH (21:53)
[2020-05-31] MEDS: CEPHALEXIN 500 MG CAPSULE PO SCH ×3 (05:25→21:50)
[2020-05-31 06:58] LABS: HEMATOCRIT 32.2 % (37.9-51.0); HEMOGLOBIN 10.4 g/dL (13.5-17.0); MEAN CORPUSCULAR HEMOGLOBIN 27.3 pg (27.0-33.4); MEAN CORPUSCULAR HGB CONC 32.2 g/dL (32.0-36.0); MEAN CORPUSCULAR VOLUME 85 fl (80-97); PLATELET COUNT 136 10^3/uL (150-450); RED BLOOD COUNT 3.79 10^6/uL (4.35-5.55); RED CELL DISTRIBUTION WIDTH 14.1 % (11.5-14.0); WHITE BLOOD COUNT 6.3 10^3/uL (4.0-10.5)
[2020-05-31 07:25] LABS: ANION GAP 8 (5-19); BLOOD UREA NITROGEN 23 mg/dL (7-20); CALCIUM 8.8 mg/dL (8.4-10.2); CARBON DIOXIDE 38 mmol/L (22-30); CHLORIDE 93 mmol/L (98-107); GLUCOSE 102 mg/dL (75-110); POTASSIUM 4.1 mmol/L (3.6-5.0)
[2020-05-31] MEDS: CARVEDILOL 12.5 MG TABLET PO SCH ×2 (11:02→21:50)
[2020-05-31] MEDS: FAMOTIDINE 20 MG TABLET PO SCH ×2 (11:03→21:50)
[2020-05-31] MEDS: AMLODIPINE BESYLATE 10 MG TABLET PO SCH (11:03)
[2020-05-31] MEDS: CIPROFLOXACIN HCL 500 MG TABLET PO SCH ×2 (11:03→21:50)
[2020-05-31] MEDS: LOSARTAN POTASSIUM 50 MG TABLET PO SCH (11:03)
[2020-05-31] MEDS: FUROSEMIDE INJ/PF 20 MG/2 ML SDV IV SCH ×2 (11:04→21:51)
[2020-05-31] MEDS: ENOXAPARIN SODIUM INJ 40 MG/0.4 ML DISP.SYRIN SUBCUT SCH (11:04)
[2020-05-31] MEDS: FLUTICASONE NASAL SPRAY 50 MCG/SPRY 120 SPRAY/16 GM NASL SCH ×2 (11:05→21:51)
[2020-05-31] MEDS: POLYETHYLENE GLYCOL 3350 POWDER 17 GM/1 PACKET PO SCH (13:14)
[2020-05-31] MEDS: ACETAMINOPHEN 325 MG TABLET PO PRN (17:35)
--- NOTE | 2020-05-31 18:32 | PDOC PROGRESS REPORT ---
Subjective Date:: 05/31/20 Subjective:: Patient is resting in bed comfortably. Reports overall significant improvement. Reports several day history constipation, will implement Miralax. Discussed pros and cons Schaefer catheter vs briefs with the patient in detail. Family has contacted home hopsice agency, waiting on response. No questions or concerns today. Reason For Visit: HEART FAILURE, RLE cellulitis Physical Exam Vital Signs: Temp Pulse Resp BP Pulse Ox 98.2 F 70 18 141/60 H 100 05/31/20 12:02 05/31/20 12:02 05/31/20 12:02 05/31/20 12:02 05/31/20 12:02 Intake & Output 05/30/20 05/31/20 06/01/20 06:59 06:59 06:59 Intake Total 726 1490 840 Output Total 1150 1435 750 Balance -424 55 90 Weight 155 kg 156.2 kg Additional comments: Head exam: PRESENT: atraumatic, normocephalic Eye exam: PRESENT: EOMI, other - Swelling in periorbital region greatly reduced from evaluation yesterday.. ABSENT: scleral icterus Mouth exam: PRESENT: moist, tongue midline Neck exam: PRESENT: full ROM. ABSENT: carotid bruit, JVD, lymphadenopathy, tenderness, thyromegaly Respiratory exam: PRESENT: decreased breath sounds - likely due to body habitus.. ABSENT: crackles, wheezes Cardiovascular exam: PRESENT: RRR, +S1, +S2. ABSENT: clicks, diastolic murmur, gallop, systolic murmur Pulses: PRESENT: normal radial pulses GI/Abdominal exam: PRESENT: distended, normal bowel sounds, soft. ABSENT: organolmegaly, tenderness Gentrourinary exam: PRESENT: indwelling catheter Extremities exam: PRESENT: pedal edema - bilateral lower extremities with the R>L, though improved from previous visit. ROM bilateral lower extremity limited secondary to body habitus. Musculoskeletal exam: ABSENT: deformity, dislocation Neurological exam: PRESENT: alert, awake, oriented to person, oriented to place, oriented to time, oriented to situation. ABSENT: altered, CN II-XII grossly intact, motor sensory deficit Psychiatric exam: PRESENT: appropriate affect, normal mood Skin exam: PRESENT: erythema - Right lower extremity with erythema improved from previous. Warmth has greatly decreased. Chronic skin changes bilateral lower extremities with noted hyperpigmentation. There is well healed venous stasis ulcer on the posterior left johnson with a dried white scab overlying. Skin is taut and shiny. There is wrinkling of the skin bilaterally, this is improved from previous visits. Results Laboratory Results: 05/31/20 06:22 05/31/20 06:22 05/31/20 05/31/20 06:22 06:22 WBC 6.3 RBC 3.79 L Hgb 10.4 L Hct 32.2 L MCV 85 MCH 27.3 MCHC 32.2 RDW 14.1 H Plt Count 136 L Sodium 138.7 Potassium 4.1 Chloride 93 L Carbon Dioxide 38 H Anion Gap 8 BUN 23 H Creatinine 0.65 Est GFR ( Amer) > 60 Glucose 102 Calcium 8.8 05/28/20 06:22 Blood Blood Culture - Final Aerococcus Urinae 05/28/20 04:47 Clean Catch Midstream Urine Culture - Final Pseudomonas Aeruginosa Aerococcus Urinae 05/28/20 05/28/20 05/28/20 01:28 01:28 10:49 Troponin I 0.013 < 0.012 NT-Pro-B Natriuret Pep 1070 H Impressions: Venous Doppler Study 05/28/20 00:00 IMPRESSION: NO EVIDENCE DVT OR SVT IN THE LEFT LEG. Chest X-Ray 05/28/20 00:57 IMPRESSION: 1. No acute findings. Hip/Pelvis X-Ray 05/29/20 00:00 IMPRESSION: NEGATIVE STUDY OF THE RIGHT HIP. NO RADIOGRAPHIC EVIDENCE OF ACUTE INJURY. Lower Extremity CT 05/29/20 00:00 IMPRESSION: Findings consistent with cellulitis without demonstrated extension into the muscular compartments or underlying osseous abnormality to suggest osteomyelitis. Tibia/Fibula X-Ray 05/29/20 00:00 IMPRESSION: No acute fracture Assessment and Plan - Diagnosis (1) Pseudomonas urinary tract infection Is this a current diagnosis for this admission?: Yes Plan: UA + protein, large blood, and moderate leukocyte esterase. UC positive for pseudomonas today. Implemented therapy with Ciprofloxacin 500mg PO Q8 x7 days - Start date 05/30 - End date 06/06 (2) Cellulitis of right lower extremity Is this a current diagnosis for this admission?: Yes Plan: S/p fall prior to admission, landing on right side. RLE imaging without acute findings fx, findings consistent with cellulitis. Initiate Cephalexin 500mg PO q8 (05/29). Wound care consulted - Recommend bilateral compression - Hold on compression of RLE until cellulitis has cleared (3) Right leg swelling Is this a current diagnosis for this admission?: Yes Plan: As per #1. History chronic venous stasis Doppler US without finding acute clot. CT and Xray without finding acute fx. Tx as above. (4) Acute on chronic diastolic heart failure Is this a current diagnosis for this admission?: Yes Plan: Presents with worsening shortness of breath and orthopnea; this has improved with 20mg IV lasix BID. BNP elevated at 1070 on admission. Last hospitalized from heart failure exacerbation Feb 2019. Cardiac enzymes negative, EKG sinus rhythm Continue Lasix 20 mg IV twice daily Strict I&O's, daily weight, fluid restriction Plan to discharge home with increased dose PO lasix. (5) Frequent falls Is this a current diagnosis for this admission?: Yes Plan: Likely due to deconditioning and heart failure. Physical therapy consulted for evaluation. Pt and POA have decided to move forward with home health. Per PT recommendations HH with assist. Continue with PT while in house. Family requesting navin lift and offloading mattress. (6) Sleep apnea syndrome Qualifiers: Sleep apnea type: unspecified type Qualified Code(s): G47.30 - Sleep apnea, unspecified Is this a current diagnosis for this admission?: Yes Plan: Continue CPAP while inpatient. 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 Glucose readings consistently <100. No treatment necessary at this time. (8) Morbid obesity Is this a current diagnosis for this admission?: Yes Plan: BMI of 47.8kg/m2. Discussed dietary and lifestyle recommendations and changes with the patient in detail. (9) Constipation Qualifiers: Constipation type: unspecified constipation type Qualified Code(s): K59.00 - Constipation, unspecified Is this a current diagnosis for this admission?: Yes Plan: Initiate Miralax daily. - Plan Summary Summary: Discharge home once home hospice is set up. - Time Time Spent with patient: 25-34 minutes Medications reviewed and adjusted accordingly: Yes Anticipated Discharge Disposition: Home with Hospice Anticipated Discharge Timeframe: within 24 hours
[2020-05-31] MEDS: LATANOPROST 0.005% OPH SOLN 2.5 ML OU SCH (21:51)
[2020-06-01 06:12] LABS: HEMOGLOBIN 10.5 g/dL (13.5-17.0); MEAN CORPUSCULAR HEMOGLOBIN 27.1 pg (27.0-33.4); MEAN CORPUSCULAR HGB CONC 31.9 g/dL (32.0-36.0); MEAN CORPUSCULAR VOLUME 85 fl (80-97); PLATELET COUNT 142 10^3/uL (150-450); RED BLOOD COUNT 3.88 10^6/uL (4.35-5.55); RED CELL DISTRIBUTION WIDTH 14.1 % (11.5-14.0); WHITE BLOOD COUNT 5.6 10^3/uL (4.0-10.5)
[2020-06-01] MEDS: CEPHALEXIN 500 MG CAPSULE PO SCH ×3 (06:15→23:12)
[2020-06-01 06:33] LABS: ANION GAP 6 (5-19); BLOOD UREA NITROGEN 26 mg/dL (7-20); CALCIUM 8.7 mg/dL (8.4-10.2); CARBON DIOXIDE 39 mmol/L (22-30); CHLORIDE 93 mmol/L (98-107); GLUCOSE 100 mg/dL (75-110); POTASSIUM 4.4 mmol/L (3.6-5.0)
[2020-06-01] MEDS: LOSARTAN POTASSIUM 50 MG TABLET PO SCH (10:57)
[2020-06-01] MEDS: FAMOTIDINE 20 MG TABLET PO SCH ×2 (10:58→22:29)
[2020-06-01] MEDS: CARVEDILOL 12.5 MG TABLET PO SCH ×2 (10:58→22:29)
[2020-06-01] MEDS: AMLODIPINE BESYLATE 10 MG TABLET PO SCH (10:58)
[2020-06-01] MEDS: CIPROFLOXACIN HCL 500 MG TABLET PO SCH ×2 (10:58→22:30)
[2020-06-01] MEDS: ENOXAPARIN SODIUM INJ 40 MG/0.4 ML DISP.SYRIN SUBCUT SCH (10:59)
[2020-06-01] MEDS: FLUTICASONE NASAL SPRAY 50 MCG/SPRY 120 SPRAY/16 GM NASL SCH ×2 (10:59→22:30)
[2020-06-01] MEDS: FUROSEMIDE INJ/PF 20 MG/2 ML SDV IV SCH ×2 (11:00→22:30)
[2020-06-01] MEDS: POLYETHYLENE GLYCOL 3350 POWDER 17 GM/1 PACKET PO SCH (11:03)
--- NOTE | 2020-06-01 18:49 | PDOC PROGRESS REPORT ---
Subjective Date:: 06/01/20 Subjective:: Resting in bed comfortably. States feeling significantly better overall. Provides me with no complaints or concerns. No concerns per nursing. Granddaughter or POA tells me that home hospice is set to evaluate patient tomorrow. Plan to dc home with home hospice tomorrow. Reason For Visit: HEART FAILURE Physical Exam Vital Signs: Temp Pulse Resp BP Pulse Ox 98.3 F 61 18 132/47 H 97 06/01/20 15:38 06/01/20 15:38 06/01/20 15:38 06/01/20 15:38 06/01/20 15:38 Intake & Output 05/31/20 06/01/20 06/02/20 06:59 06:59 06:59 Intake Total 1490 1515 356 Output Total 1435 2180 Balance 55 -665 356 Weight 156.2 kg 154.1 kg Additional comments: Head exam: PRESENT: atraumatic, normocephalic Eye exam: PRESENT: EOMI, other - Swelling in periorbital region greatly reduced from evaluation yesterday.. ABSENT: scleral icterus Mouth exam: PRESENT: moist, tongue midline Neck exam: PRESENT: full ROM. ABSENT: carotid bruit, JVD, lymphadenopathy, tenderness, thyromegaly Respiratory exam: PRESENT: decreased breath sounds - likely due to body habitus.. ABSENT: crackles, wheezes Cardiovascular exam: PRESENT: RRR, +S1, +S2. ABSENT: clicks, diastolic murmur, gallop, systolic murmur Pulses: PRESENT: normal radial pulses GI/Abdominal exam: PRESENT: distended, normal bowel sounds, soft. ABSENT: organolmegaly, tenderness Gentrourinary exam: PRESENT: indwelling catheter Extremities exam: PRESENT: pedal edema - bilateral lower extremities with the R>L, though improved from previous visit. ROM bilateral lower extremity limited secondary to body habitus. Musculoskeletal exam: ABSENT: deformity, dislocation Neurological exam: PRESENT: alert, awake, oriented to person, oriented to place, oriented to time, oriented to situation. ABSENT: altered, CN II-XII grossly intact, motor sensory deficit Psychiatric exam: PRESENT: appropriate affect, normal mood Skin exam: PRESENT: erythema - Right lower extremity with erythema improved from previous. Warmth has greatly decreased. Chronic skin changes bilateral lower extremities with noted hyperpigmentation. There is well healed venous stasis ulcer on the posterior left johnson with a dried white scab overlying. Skin is taut and shiny. There is wrinkling of the skin bilaterally, this is improved from previous visits. Results Laboratory Results: 06/01/20 05:35 06/01/20 05:35 06/01/20 06/01/20 05:35 05:35 WBC 5.6 RBC 3.88 L Hgb 10.5 L Hct 33.0 L MCV 85 MCH 27.1 MCHC 31.9 L RDW 14.1 H Plt Count 142 L Sodium 137.9 Potassium 4.4 Chloride 93 L Carbon Dioxide 39 H Anion Gap 6 BUN 26 H Creatinine 0.69 Est GFR ( Amer) > 60 Glucose 100 Calcium 8.7 05/28/20 05/28/20 05/28/20 01:28 01:28 10:49 Troponin I 0.013 < 0.012 NT-Pro-B Natriuret Pep 1070 H Impressions: Venous Doppler Study 05/28/20 00:00 IMPRESSION: NO EVIDENCE DVT OR SVT IN THE LEFT LEG. Chest X-Ray 05/28/20 00:57 IMPRESSION: 1. No acute findings. Hip/Pelvis X-Ray 05/29/20 00:00 IMPRESSION: NEGATIVE STUDY OF THE RIGHT HIP. NO RADIOGRAPHIC EVIDENCE OF ACUTE INJURY. Lower Extremity CT 05/29/20 00:00 IMPRESSION: Findings consistent with cellulitis without demonstrated extension into the muscular compartments or underlying osseous abnormality to suggest osteomyelitis. Tibia/Fibula X-Ray 05/29/20 00:00 IMPRESSION: No acute fracture Assessment and Plan - Diagnosis (1) Pseudomonas urinary tract infection Is this a current diagnosis for this admission?: Yes Plan: UA + protein, large blood, and moderate leukocyte esterase. UC positive for pseudomonas today. Implemented therapy with Ciprofloxacin 500mg PO Q8 x7 days - Start date 05/30 - End date 06/06 (2) Cellulitis of right lower extremity Is this a current diagnosis for this admission?: Yes Plan: S/p fall prior to admission, landing on right side. RLE imaging without acute findings fx, findings consistent with cellulitis. Initiate Cephalexin 500mg PO q8 (05/29). Discontinue upon dc home. Wound care consulted - Recommend bilateral compression - Hold on compression of RLE until cellulitis has cleared (3) Right leg swelling Is this a current diagnosis for this admission?: Yes Plan: As per #1. History chronic venous stasis Doppler US without finding acute clot. CT and Xray without finding acute fx. Tx as above. (4) Acute on chronic diastolic heart failure Is this a current diagnosis for this admission?: Yes Plan: Presents with worsening shortness of breath and orthopnea; this has improved with 20mg IV lasix BID. BNP elevated at 1070 on admission. Last hospitalized from heart failure exacerbation Feb 2019. Cardiac enzymes negative, EKG sinus rhythm Continue Lasix 20 mg IV twice daily Strict I&O's, daily weight, fluid restriction Plan to discharge home with increased dose PO lasix. (5) Frequent falls Is this a current diagnosis for this admission?: Yes Plan: Likely due to deconditioning and heart failure. Physical therapy consulted for evaluation. Pt and POA have decided to move forward with home health. Per PT recommendations HH with assist. Continue with PT while in house. Family requesting navin lift and offloading mattress. (6) Sleep apnea syndrome Qualifiers: Sleep apnea type: unspecified type Qualified Code(s): G47.30 - Sleep apnea, unspecified Is this a current diagnosis for this admission?: Yes Plan: Continue CPAP while inpatient. 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 Glucose readings consistently <100. No treatment necessary at this time. (8) Morbid obesity Is this a current diagnosis for this admission?: Yes Plan: BMI of 47.8kg/m2. Discussed dietary and lifestyle recommendations and changes with the patient in detail. (9) Constipation Qualifiers: Constipation type: unspecified constipation type Qualified Code(s): K59.00 - Constipation, unspecified Is this a current diagnosis for this admission?: Yes Plan: Patient experienced x2 BMs following miralax. No further treatment at this time. - Plan Summary Summary: Discharge home once home hospice is set up. - Time Time Spent with patient: 25-34 minutes Medications reviewed and adjusted accordingly: Yes Anticipated Discharge Disposition: Home with Hospice Anticipated Discharge Timeframe: within 24 hours
[2020-06-01] MEDS: LATANOPROST 0.005% OPH SOLN 2.5 ML OU SCH (22:30)
[2020-06-02] MEDS: CEPHALEXIN 500 MG CAPSULE PO SCH (05:53)
[2020-06-02] MEDS: CARVEDILOL 12.5 MG TABLET PO SCH (09:43)
[2020-06-02] MEDS: LOSARTAN POTASSIUM 50 MG TABLET PO SCH (09:43)
[2020-06-02] MEDS: AMLODIPINE BESYLATE 10 MG TABLET PO SCH (09:43)
[2020-06-02] MEDS: FAMOTIDINE 20 MG TABLET PO SCH (09:43)
[2020-06-02] MEDS: FLUTICASONE NASAL SPRAY 50 MCG/SPRY 120 SPRAY/16 GM NASL SCH (09:44)
[2020-06-02] MEDS: ENOXAPARIN SODIUM INJ 40 MG/0.4 ML DISP.SYRIN SUBCUT SCH (09:44)
[2020-06-02] MEDS: FUROSEMIDE INJ/PF 20 MG/2 ML SDV IV SCH (09:44)
[2020-06-02] MEDS: CIPROFLOXACIN HCL 500 MG TABLET PO SCH (09:44)
[2020-06-02] MEDS: POLYETHYLENE GLYCOL 3350 POWDER 17 GM/1 PACKET PO SCH (09:47)
--- NOTE | 2020-06-02 12:15 | PDOC DISCHARGE SUMMARY ---
Impression - Admit/DC Date/PCP Admission Date/Primary Care Provider: 05/28/20 13:24 ROB HOLLOWAY DPM Discharge Date: 06/02/20 - Discharge Diagnosis (1) Pseudomonas urinary tract infection Is this a current diagnosis for this admission?: Yes (2) Cellulitis of right lower extremity Is this a current diagnosis for this admission?: Yes (3) Right leg swelling Is this a current diagnosis for this admission?: Yes (4) Acute on chronic diastolic heart failure Is this a current diagnosis for this admission?: Yes (5) Frequent falls Is this a current diagnosis for this admission?: Yes (6) Sleep apnea syndrome Is this a current diagnosis for this admission?: Yes (7) Morbid obesity Is this a current diagnosis for this admission?: Yes (8) Constipation Is this a current diagnosis for this admission?: Yes - Assessment Summary: Discharge home once home hospice is set up. - Additional Information Resuscitation Status: Do Not Resuscitate Discharge Diet: Cardiac Discharge Activity: Activity As Tolerated, Balance Activity w/Rest Referrals: ROB HOLLOWAY DPM [Primary Care Provider] - Follow up as needed Prescriptions: Ciprofloxacin HCl [Cipro 500 mg Tablet] 500 mg PO Q12 #10 tablet Furosemide [Lasix 80 mg Tablet] 80 mg PO QAM #30 tab Home Medications: Fexofenadine HCl [Rosi] 180 mg PO DAILY 11/05/14 Latanoprost [Xalatan 0.005% Oph Soln 2.5 ml] 1 drop OU QHS 11/05/14 Oxybutynin Chloride 5 mg PO TID 11/05/14 Terazosin HCl 5 mg PO QHS 11/05/14 Losartan Potassium [Cozaar 100 mg Tablet] 100 mg PO DAILY 06/07/15 Carvedilol [Coreg 12.5 mg Tablet] 25 mg PO Q12 #0 tablet 07/24/15 Albuterol Sulfate [Ventolin 0.083% Neb 2.5 mg/3 mL Ampul] 1 vial NEB [id number] PRN 05/28/20 Allopurinol [Zyloprim 100 mg Tablet] 200 mg PO DAILY 05/28/20 Amlodipine Besylate [Norvasc 10 mg Tablet] 10 mg PO DAILY 05/28/20 Aspirin [Ecotrin 81 mg EC Tablet] 81 mg PO DAILY 05/28/20 Famotidine [Pepcid 20 mg Tablet] 20 mg PO BID 05/28/20 Fluticasone Propionate [Flonase Nasal [place] 50 Mcg/[place] 16 gm] 1 spray NASL Q12 05/28/20 Lactobacillus Acidophilus [Acidophilus] 1 each PO DAILY 05/28/20 Omeprazole 40 mg PO DAILY 05/28/20 Ciprofloxacin HCl [Cipro 500 mg Tablet] 500 mg PO Q12 #10 tablet 06/02/20 Furosemide [Lasix 80 mg Tablet] 80 mg PO QAM #30 tab 06/02/20 History of Present Illiness History of Present Illness: TAO VEGA is a 89 year old male Hospital Course Hospital Course: Pseudomonas urinary tract infection UA + protein, large blood, and moderate leukocyte esterase. Urine culture positive for Pseudomonas. Initiated therapy with ciprofloxacin 500mg PO Q8 on 05/30 to be taken for 7 days total with end date scheduled for 06/06. For patient's comfort we have inserted a Schaefer catheter this was initially placed on 05/28/2020, your home health agency will change this periodically. Cellulitis of right lower extremity S/p fall prior to admission, landing on right side. RLE imaging without acute findings fx, findings consistent with cellulitis. Doppler right lower extremity without findings of acute clot. This was successfully treated with a 5-day course of Cephalexin 500mg PO q8 (05/29). No further care needed at this time. Wound care consulted regarding bilateral lower extremity - Recommend bilateral compression - Hold on compression of RLE until cellulitis has cleared Acute on chronic diastolic heart failure Initially presented with worsening shortness of breath and orthopnea and notable diffuse edema; this was successfully treated with 20mg IV lasix BID. BNP elevated at 1070 on admission. Last hospitalized from heart failure exacerbation Feb 2019. Cardiac enzymes negative, EKG sinus rhythm. Transition from IV Lasix to Lasix 80 mg by mouth every morning, this is an increased dose from previous home dose 40 mg.. Recommend continuing with daily weights, fluid restriction less than 50 ounces per day, sodium restriction less than 1500 cc daily. Bilateral lower extremity swelling /chronic venous stasis bilateral lower extremities Patient was evaluated by wound care who recommend daily compression stockings. Held compression right lower extremity due to current cellulitis. May resume at this time the cellulitis has resolved. Continue with bilateral lower extremity compression daily for comfort and relief of swelling. Sleep apnea syndrome: Continue CPAP. Physical Exam Vital Signs: Temp Pulse Resp BP Pulse Ox 98.4 F 74 18 136/55 H 100 06/02/20 11:00 06/02/20 11:00 06/02/20 11:00 06/02/20 11:00 06/02/20 11:00 Intake & Output 06/01/20 06/02/20 06/03/20 06:59 06:59 06:59 Intake Total 1515 1402 Output Total 2180 1825 Balance -665 -423 Weight 154.1 kg 153.2 kg Additional comments: General: Cooperative, pleasant, obese male who appears younger than stated age. Head exam: PRESENT: atraumatic, normocephalic Eye exam: PRESENT: EOMI, other - Swelling in periorbital region has overall improved significantly. ABSENT: scleral icterus Mouth exam: PRESENT: moist, tongue midline Neck exam: PRESENT: full ROM. ABSENT: carotid bruit, JVD, lymphadenopathy, tenderness, thyromegaly Respiratory exam: PRESENT: decreased breath sounds - likely due to body habitus.. ABSENT: crackles, wheezes Cardiovascular exam: PRESENT: RRR, +S1, +S2. ABSENT: clicks, diastolic murmur, gallop, systolic murmur Pulses: PRESENT: normal radial pulses GI/Abdominal exam: PRESENT: distended, normal bowel sounds, soft. ABSENT: org anolmegaly, tenderness Gentrourinary exam: PRESENT: indwelling catheter Extremities exam: PRESENT: pedal edema -right greater than left. Left toes es sentially resolved. Right has significantly improved. ROM bilateral lower extremity limited secondary to body habitus. Musculoskeletal exam: ABSENT: deformity, dislocation Neurological exam: PRESENT: alert, awake, oriented to person, oriented to place, oriented to time, oriented to situation. ABSENT: altered, CN II-XII grossly intact, motor sensory deficit Psychiatric exam: PRESENT: appropriate affect, normal mood Skin exam: PRESENT: erythema -erythema right lower extremity has significantly improved minimally present, with some very minimal warmth. Chronic skin changes bilateral lower extremities with noted hyperpigmentation. There is well healed venous stasis ulcer on the posterior left johnson with a dried white scab overlying. Skin is taut and shiny. There is wrinkling of the skin bilaterally, this is improved from previous visits. Results Laboratory Results: WBC 5.6 10^3/uL (4.0-10.5) 06/01/20 05:35 RBC 3.88 10^6/uL (4.35-5.55) L 06/01/20 05:35 Hgb 10.5 g/dL (13.5-17.0) L 06/01/20 05:35 Hct 33.0 % (37.9-51.0) L 06/01/20 05:35 MCV 85 fl (80-97) 06/01/20 05:35 MCH 27.1 pg (27.0-33.4) 06/01/20 05:35 MCHC 31.9 g/dL (32.0-36.0) L 06/01/20 05:35 RDW 14.1 % (11.5-14.0) H 06/01/20 05:35 Plt Count 142 10^3/uL (150-450) L 06/01/20 05:35 Lymph % (Auto) Not Reportable 05/28/20 01:28 [place] % (Auto) Not Reportable 05/28/20 01:28 Eos % (Auto) Not Reportable 05/28/20 01:28 Baso % (Auto) Not Reportable 05/28/20 01:28 Absolute Neuts (auto) Not Reportable 05/28/20 01:28 Absolute Lymphs (auto) Not Reportable 05/28/20 01:28 Absolute Monos (auto) Not Reportable 05/28/20 01:28 Absolute Eos (auto) Not Reportable 05/28/20 01:28 Absolute Basos (auto) Not Reportable 05/28/20 01:28 Total Counted 100 05/28/20 01:28 Seg Neutrophils % Not Reportable 05/28/20 01:28 Seg Neuts % (Manual) 89 % (42-78) H 05/28/20 01:28 Band Neutrophils % 2 % (3-5) L 05/28/20 01:28 Lymphocytes % (Manual) 4 % (13-45) L 05/28/20 01:28 Monocytes % (Manual) 5 % (3-13) 05/28/20 01:28 Eosinophils % (Manual) 0 % (0-6) 05/28/20 01:28 Basophils % (Manual) 0 % (0-2) 05/28/20 01:28 Abs Neuts (Manual) 12.2 10^3/uL (1.7-8.2) H 05/28/20 01:28 Abs Lymphs (Manual) 0.5 10^3/uL (0.5-4.7) 05/28/20 01:28 Abs Monocytes (Manual) 0.7 10^3/uL (0.1-1.4) 05/28/20 01:28 Absolute Eos (Manual) 0.0 10^3/uL (0.0-0.6) 05/28/20 01:28 Abs Basophils (Manual) 0.0 10^3/uL (0.0-0.2) 05/28/20 01:28 Toxic Granulation SLIGHT 05/28/20 01:28 Toxic Vacuolation PRESENT 05/28/20 01:28 Platelet Comment DECREASED 05/28/20 01:28 Polychromasia SLIGHT 05/28/20 01:28 Hypochromasia SLIGHT 05/28/20 01:28 Poikilocytosis SLIGHT 05/28/20 01:28 Anisocytosis SLIGHT 05/28/20 01:28 Ovalocytes SLIGHT 05/28/20 01:28 Sodium 137.9 mmol/L (137-145) 06/01/20 05:35 Potassium 4.4 mmol/L (3.6-5.0) 06/01/20 05:35 Chloride 93 mmol/L (98-107) L 06/01/20 05:35 Carbon Dioxide 39 mmol/L (22-30) H 06/01/20 05:35 Anion Gap 6 (5-19) 06/01/20 05:35 BUN 26 mg/dL (7-20) H 06/01/20 05:35 Creatinine 0.69 mg/dL (0.52-1.25) 06/01/20 05:35 Est GFR ( Amer) > 60 (>60) 06/01/20 05:35 Est GFR (MDRD) Non-Af > 60 (>60) 06/01/20 05:35 Glucose 100 mg/dL (75-110) 06/01/20 05:35 Hemoglobin A1c % 5.2 % (4.7-6.0) 05/29/20 16:28 Calcium 8.7 mg/dL (8.4-10.2) 06/01/20 05:35 Total Bilirubin 0.8 mg/dL (0.2-1.3) 05/28/20 01:28 Direct Bilirubin 0.2 mg/dL (0.0-0.4) 05/28/20 01:28 Neonat Total Bilirubin Not Reportable 05/28/20 01:28 Neonat Direct Bilirubin Not Reportable 05/28/20 01:28 Neonat Indirect Bili Not Reportable 05/28/20 01:28 AST 25 U/L (17-59) 05/28/20 01:28 ALT 16 U/L (<50) 05/28/20 01:28 Alkaline Phosphatase 54 U/L (38-126) 05/28/20 01:28 Troponin I < 0.012 ng/mL 05/28/20 10:49 NT-Pro-B Natriuret Pep 1070 pg/mL (<450) H 05/28/20 01:28 Total Protein 6.4 g/dL (6.3-8.2) 05/28/20 01:28 Albumin 3.5 g/dL (3.5-5.0) 05/28/20 01:28 Urine Color YELLOW 05/28/20 04:47 Urine Appearance SLIGHTLY-CLOUDY 05/28/20 04:47 Urine pH 6.0 (5.0-9.0) 05/28/20 04:47 Ur Specific [place] 1.014 05/28/20 04:47 Urine Protein 30 mg/dL (NEGATIVE) H 05/28/20 04:47 Urine Glucose (UA) NEGATIVE mg/dL (NEGATIVE) 05/28/20 04:47 Urine Ketones NEGATIVE mg/dL (NEGATIVE) 05/28/20 04:47 Urine Blood LARGE (NEGATIVE) H 05/28/20 04:47 Urine Nitrite NEGATIVE (NEGATIVE) 05/28/20 04:47 Urine Bilirubin NEGATIVE (NEGATIVE) 05/28/20 04:47 Urine Urobilinogen NEGATIVE mg/dL (<2.0) 05/28/20 04:47 Ur Leukocyte Esterase MODERATE (NEGATIVE) H 05/28/20 04:47 Urine WBC (Auto) 23 /HPF 05/28/20 04:47 Urine RBC (Auto) >182 /HPF 05/28/20 04:47 Urine Bacteria (Auto) TRACE /HPF 05/28/20 04:47 Squamous Epi Cells Auto <1 /HPF 05/28/20 04:47 Urine Mucus (Auto) OCC /LPF 05/28/20 04:47 Urine Yeast (Budding) PRESENT /HPF 05/28/20 04:47 Urine Ascorbic Acid NEGATIVE (NEGATIVE) 05/28/20 04:47 05/28/20 05/28/20 05/28/20 01:28 01:28 10:49 Troponin I 0.013 < 0.012 NT-Pro-B Natriuret Pep 1070 H Impressions: Venous Doppler Study 05/28/20 00:00 IMPRESSION: NO EVIDENCE DVT OR SVT IN THE LEFT LEG. Chest X-Ray 05/28/20 00:57 IMPRESSION: 1. No acute findings. Hip/Pelvis X-Ray 05/29/20 00:00 IMPRESSION: NEGATIVE STUDY OF THE RIGHT HIP. NO RADIOGRAPHIC EVIDENCE OF ACUTE INJURY. Lower Extremity CT 05/29/20 00:00 IMPRESSION: Findings consistent with cellulitis without demonstrated extension into the muscular compartments or underlying osseous abnormality to suggest osteomyelitis. Tibia/Fibula X-Ray 05/29/20 00:00 IMPRESSION: No acute fracture Plan Plan of Treatment: 1. Home hospice. You will have the home hospice agency meet with you at your home for an evaluation. The hospice provider, along with your primary care provider will continue to manage your medications moving forward. 2. We have increased your Lasix (Furosemide, or your fluid pill) to one 80mg pill every morning. - Monitor your ins and outs - Restrict fluid intake to less than 50 ounces daily - Restrict your sodium intake to less than 1500ccs daily - Weigh yourself daily. Your weight on the day of discharge is 337lbs. 3. For your urinary tract infection, please continue taking Ciprofloxacin 500mg by mouth twice daily. Continue taking this medication until 06/06/2020. 4. You are going home with a Schaefer/urinary catheter in place. This was initially placed on 05/28/2020. Your hospice agency will change this for you. 5. The skin infection on your right leg was treated with an antibiotic and has greatly improved. No further therapy is necessary at this time. If not addressed above please continue taking all other medications as previously prescribed. Your hospice team and primary care provider will make further necessary changes to your medications as they see fit. Goals: Following a goals of care conversation patient has decided to move forward with home hospice, believe resources available to him will be substantially beneficial. Patient's primary care provider was made aware of this. Per patient's daughter and power of workers compensation attorney patient's primary care provider will be involved with hospice as well. Medications as discussed and addressed above. Time Spent: Greater than 30 Minutes Stroke Is this a Stroke Patient?: No Acute Heart Failure Is this a Heart Failure Patient?: Yes Documentation of LVEF assessment?: Yes - Hospice LVEF - Reason: Hospice LVEF: LVEF Greater Than 40% Anticoagulant Therapy: Yes Discharged on Evidence-Based Beta Blockers: Yes Discharged on ARNI?: No-Document Contraindications Reason(s) not discharged on ARNI: ACEI use within the prior 36 hours Discharged on ARB?: Yes Discharged on ACEI?: N/A Discharged on ARB For LVEF <35%, discharged on Aldosterone Antagonist?: N/A (LVEF > or = 35%) Follow-up Appointment scheduled within 7 days?: Yes
[2020-06-02 12:38] VITALS: BP 131/55
== END 2020-06-02 12:50 | disposition home health service (06) | DRG 291 ==
LOC: ER 00:02 → EH 05:22 → INTOOBSV 05:22 → OBSVTOIN 13:24 → 5TH 14:00 → 4S 17:03
PROVIDERS: ADMIT Student in an Organized Health Care Education/Training Program; ATTEND Physician Assistant
DX: I13.0 Hypertensive heart and chronic kidney disease with heart failure and stage 1 through stage 4 chronic kidney disease, or unspecified chronic kidney disease (principal); I50.33 Acute on chronic diastolic (congestive) heart failure; L03.113 Cellulitis of right upper limb; N39.0 Urinary tract infection, site not specified; L97.828 Non-pressure chronic ulcer of other part of left lower leg with other specified severity; Z68.42 Body mass index [BMI] 45.0-49.9, adult; E11.22 Type 2 diabetes mellitus with diabetic chronic kidney disease; E11.51 Type 2 diabetes mellitus with diabetic peripheral angiopathy without gangrene; N18.30 Chronic kidney disease, stage 3 unspecified; K59.00 Constipation, unspecified; E66.01 Morbid (severe) obesity due to excess calories; I83.028 Varicose veins of left lower extremity with ulcer other part of lower leg; G47.30 Sleep apnea, unspecified; Z79.899 Other long term (current) drug therapy; B96.5 Pseudomonas (aeruginosa) (mallei) (pseudomallei) as the cause of diseases classified elsewhere; M19.90 Unspecified osteoarthritis, unspecified site; J44.9 Chronic obstructive pulmonary disease, unspecified; Z91.81 History of falling; Z99.81 Dependence on supplemental oxygen; Z87.891 Personal history of nicotine dependence
CPT/HCPCS: 36415; 71045; 80048; 80053; 81001; 83036; 83880; 84484; 85025; 85027; 87040; 87077; 87086; 87088; 87186; 93005; 93010; 93971; 99285; G0378; J0696; J1650; J1940; J3490